=== PATIENT | male | born 1985 | race Caucasian/White ===

== ENCOUNTER 2022-04-30 20:47 | Emergency (ER) | payer SELFPAY ==
--- NOTE | 2022-04-30 | ECG_ITS ---
Test Reason : CHEST DISCOMFORT Blood Pressure : / mmHG Vent. Rate : 092 BPM Atrial Rate : 092 BPM P-R Int : 144 ms QRS Dur : 078 ms QT Int : 342 ms P-R-T Axes : 080 070 054 degrees QTc Int : 422 ms Normal sinus rhythm Possible Left atrial enlargement Borderline ECG No previous ECGs available Referred By: Generic ED Physician Electronically Signed By:MARISSA VELAZQUEZ MD
[2022-04-30 22:04] VITALS: BP 121/73; PULSE 95; RESP 20; TEMP 36.2; O2SAT 98; BMI 27.5
[2022-04-30 22:36] LABS: Hematocrit 41.5 % (42.0-52.0); Hemoglobin 14.9 g/dl (14.0-18.0); Mean Corpuscular HGB Conc 35.9 g/dl (31.0-36.0); Mean Corpuscular Hemoglobin 29.9 pg (27.0-33.0); Mean Corpuscular Volume 83.2 fL (80.0-98.0); Mean Platelet Volume 9.3 fL (9.4-12.4); Platelet Count 264 X10*3/uL (160-400); Red Blood Count 4.99 X10*6/uL (4.60-5.80); Red Cell Distribution Width 12.4 % (11.0-16.0); White Blood Count 8.5 X10*3/uL (4.8-10.8)
[2022-04-30 22:52] LABS: Alanine Aminotransferase 14 U/L (0-40); Albumin Level 4.8 g/dL (3.5-5.0); Alkaline Phosphatase 39 U/L (39-117); Anion Gap 17 (12-20); Aspartate Amino Transferase 15 U/L (5-37); Bilirubin Total 0.6 mg/dL (0.0-1.0); Blood Urea Nitrogen 13 mg/dL (9-16); Calcium 9.9 mg/dL (8.4-10.2); Carbon Dioxide 22 mmol/L (22-29); Chloride 105 mmol/L (96-108); Creatinine Clr Calc Pharmacy 168.8; Estimated Glomerular Filt Rate > 60; Glucose Random 101 mg/dL (60-115); Potassium 3.4 mmol/L (3.3-5.1); Sodium 141 mmol/L (135-145); Total Protein 7.3 g/dL (6.5-8.0)
--- NOTE | 2022-05-01 00:41 | ED.ANXIETY ---
HPI - Anxiety General Chief Complaint: Anxiety Stated Complaint: Anxiety/withdrawal Time Seen by Provider: 05/01/22 00:34 Source: patient Mode of arrival: ambulatory Limitations: no limitations History of Present Illness HPI narrative: Patient has history of anxiety and heroin abuse usually use 10 bags a day stopped using it 3 days ago since then unable to sleep feel more anxious has used Suboxone in the past no vomiting abdominal pain Related Data Previous Rx's Medication Instructions Recorded lorazepam 1 mg tablet (Ativan) 1 mg PO TID PRN anxiety #7 tabs 05/01/22 Allergies Allergy/AdvReac Type Severity Reaction Status Date / Time No Known Allergies Allergy Verified 05/01/22 00:41 Review of Systems Review of Systems: Yes all other systems are reviewed and are negative [facility] Social History Social History Advance Directives: No Physical Exam Vital Signs: Vital Signs: Last Vital Signs Temp 98.7 F 05/01/22 00:43 Pulse 88 05/01/22 00:43 Resp 16 05/01/22 00:43 BP 110/71 05/01/22 00:43 Pulse Ox 97 05/01/22 00:43 O2 Del Method 05/01/22 00:43 BMI result Body Mass Index 27.5 Appearance: Alert. Oriented X3. No acute distress. Anxious Eyes: PERRLA, No Nystagmus ENT: Pharynx normal. Oral Mucosa moist Neck: Normal inspection. Neck supple. CVS: Normal heart rate and rhythm. Pulses normal. Respiratory: No respiratory distress. Equal air entry bilateral, no wheezing/rales/rhonchi Abdomen: Soft and nontender. Bowel sounds are present, no mass palpable, no CVA tenderness Skin: Skin warm and dry. Normal skin color. Normal skin turgor. Extremities: No lower extremity edema. No calf tenderness Neuro: Oriented X 3. No motor deficit. No sensory deficit.No cerebellar signs , cranial nerves II-XII intact MDM - Anxiety MDM Narrative Medical decision making narrative: Patient advised to follow up with detox in a.m. Lab Data Attestation: I reviewed the patient's lab results. Result diagrams: 04/30/22 22:31 04/30/22 22:31 Labs: Lab Results 04/30/22 04/30/22 Range/Units 22:31 22:31 WBC 8.5 (4.8-10.8) X10*3/uL RBC 4.99 (4.60-5.80) X10*6/uL Hgb 14.9 (14.0-18.0) g/dl Hct 41.5 L (42.0-52.0) % MCV 83.2 (80.0-98.0) fL MCH 29.9 (27.0-33.0) pg MCHC 35.9 (31.0-36.0) g/dl RDW 12.4 (11.0-16.0) % Plt Count 264 (160-400) X10*3/uL MPV 9.3 L (9.4-12.4) fL Absolute Nucleated RBC 0.000 (0.0-0.012) X10*3/uL Nucleated RBC % (auto) 0.0 (0.0-0.2) /100WBC Sodium 141 (135-145) mmol/L Potassium 3.4 (3.3-5.1) mmol/L Chloride 105 (96-108) mmol/L Carbon Dioxide 22 (22-29) mmol/L Anion Gap 17 (12-20) BUN 13 (9-16) mg/dL Creatinine 0.73 (0.5-1.4) mg/dL Estim Creat Clear Calc 168.8 Estimated GFR > 60 Random Glucose 101 (60-115) mg/dL Calcium 9.9 (8.4-10.2) mg/dL Total Bilirubin 0.6 (0.0-1.0) mg/dL AST 15 (5-37) U/L ALT 14 (0-40) U/L Alkaline Phosphatase 39 (39-117) U/L Total Protein 7.3 (6.5-8.0) g/dL Albumin 4.8 (3.5-5.0) g/dL Discharge Plan Discharge Clinical Impression: Acute anxiety, Opiate withdrawal Patient Disposition: Home, Self-Care Instructions: Anxiety (ED), Narcotic Withdrawal (ED) Additional Instructions: Rest at home Take Ativan for severe anxiety Follow-up with detox clinic in a.m. for Suboxone treatment Prescriptions: New lorazepam [Ativan] 1 mg tablet 1 mg PO TID PRN (Reason: anxiety) Qty: 7 0RF Interventions: ED Discharge Assessment Last Done: 05/01/22 01:32 Discharge Date/Time: 05/01/22 01:34
[2022-05-01 00:43] VITALS: BP 110/71; PULSE 88; RESP 16; TEMP 37.1; O2SAT 97
[2022-05-01] MEDS: LORazepam 1 MG TABLET 2 MG PO (01:31)
== END 2022-05-01 01:34 | disposition home or self-care (01) ==
PROVIDERS: Emergency Provider Internal Medicine
DX: F11.13 Opioid abuse with withdrawal (principal); R07.89 Other chest pain; F41.1 Generalized anxiety disorder; F43.0 Acute stress reaction; Z79.899 Other long term (current) drug therapy
CPT/HCPCS: 36415; 80053; 85027; 93005; 99283; 99284